=== PATIENT | female | born 1990 | race Caucasian/White ===

== ENCOUNTER 2020-06-30 16:47 | Emergency (ER) | payer MEDICAID ==
[~2020-06-30] VITALS: Ht 147.3 cm; Wt 60.3 kg
[2020-06-30 16:53] VITALS: BP 117/69
[2020-06-30] MEDS ORDERED: LIDOCAINE 1% INJ 50 ML MDV IJ ONE (17:35)
== END 2020-06-30 18:04 | disposition home or self-care (01) ==
LOC: ER 17:01
DX: L98.8 Other specified disorders of the skin and subcutaneous tissue (principal)
CPT/HCPCS: 99281; J3490